=== PATIENT | male | born 1990 | race African-American/Black ===

== ENCOUNTER 2020-04-07 15:44 | Emergency (ER) | payer OTHER ==
[2020-04-07 16:28] VITALS: BP 128/85; PULSE 68; TEMP 98.5; BMI 18.8
[2020-04-07] MEDS ORDERED: CEFTRIAXONE 1,000 MG in DEXTROSE 5%-WATER - 50 ML IVPB ONE (16:43)
[2020-04-07] MEDS ORDERED: cefTRIAXone SODIUM 1 GM VIAL ONE (16:49)
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
== END 2020-04-07 17:59 | disposition home or self-care (01) ==
LOC: FER 15:44
PROC: 3E033GC Introduction of Other Therapeutic Substance into Peripheral Vein, Percutaneous Approach (ICD-10-PCS; principal; 2020-04-07)
DX: L03.115 Cellulitis of right lower limb (principal)
CPT/HCPCS: 73560-TC-RT-FY; 99284-25